=== PATIENT | female | born 1935 | race Caucasian/White ===

== ENCOUNTER 2020-11-19 12:51 | Outpatient (RCR) | payer MEDICARE, SELFPAY ==
--- NOTE | 2020-11-19 14:02 | MHC.PT.EP ---
[facility] [place] [facility] [place] [facility] [place] [facility] [address] John Ward [address] [phone] F: [phone] F: [phone] F: [phone] F: [phone] Physical Therapy Plan of Care Date of Evaluation: 11/19/20 Date of Surgery: Diagnosis: Dizziness and giddiness Assessment: The patient was positive for left posterior canal BPPV. It lasted longer than 60 seconds which indicates cupulolithiasis. Particle repositioning was performed for the left PC. I also did the Semont maneuver. The patient was negative during reassessment. I also checked the roll test after 10 minutes and she was negative. She was educated regarding the mechanisms of dizziness and precautionary balance/safety recommendations for the rest of the day. She was able to ambulate out of the clinic with no apparent imbalance. She is an excellent candidate for skilled Vestibular therapy. Frequency and Duration: The patient will be seen 2/week x 4 weeks Short Term Goals: 1.Pt to be negative for nystagmus in all diagnostic positions for BPPV to facilitate improved functional movements. Brick Picker Goals: 1. For the patient to be negative for nystagmus or reports of vertigo in all diagnostic positions bilaterally to resolution of BPPV in 4 weeks. 2. For the patient to be able to functionally move in all planes and directions without provocation of dizziness to show return to PLOF. 3.For the patient to be educated on symptoms and indications to return to therapy when needed in 4 weeks. Treatment Plan: Modalities to reduce pain, spasms and effusion. Manual therapy to restore motion and function. Therapeutic exercise to improve strength and flexibility. Neuromuscular re-education for posture and balance. Therapeutic activities to return to functional activities of daily living. Electronically signed by: Marina Field PT DPT Please sign and return to therapist. Thank you for your referral.
--- NOTE | 2020-12-17 11:41 | MHC.PT.DC ---
[facility] [place] [facility] [place] [facility] [place] [facility] [address] John Ward [address] [phone] F: [phone] F: [phone] F: [phone] F: [phone] Physical Therapy Discharge Report Diagnosis: Dizziness and giddiness Date of Surgery: Date of Evaluation: 11/19/20 Date of Discharge: 11/28/20 Treatments to Date: 1 Cancellations to Date: No Shows to Date: Discharge Status: Achieved Goals Patient Elected to Stop Discharge Summary: The patient was positive for left posterior canal BPPV. It lasted longer than 60 seconds which indicates cupulolithiasis. Particle repositioning was performed for the left PC. I also did the Semont maneuver. The patient was negative during reassessment. I also checked the roll test after 10 minutes and she was negative. She was educated regarding the mechanisms of dizziness and precautionary balance/safety recommendations for the rest of the day. She was able to ambulate out of the clinic with no apparent imbalance. She is an excellent candidate for skilled Vestibular therapy. Electronically signed by: Marina Field PT DPT Please sign and return to therapist. Thank you for your referral.
== END 2021-04-29 09:30 | disposition home or self-care (01) ==
LOC: HO.PT 12:51
PROVIDERS: PCP Internal Medicine; Visit Provider Otolaryngology
DX: H81.4 Vertigo of central origin (principal)
CPT/HCPCS: 95992; 97162; 97535